=== PATIENT | female | born 1935 | race Caucasian/White ===

== ENCOUNTER 2022-07-07 10:55 | Emergency (ER) | payer MEDICARE, SELFPAY ==
[2022-07-07 10:56] VITALS: BP 110/77; PULSE 81; RESP 14; TEMP 36.5; O2SAT 96; BMI 24.5
--- NOTE | 2022-07-07 11:14 | EDS_ITS ---
HPI History of Present Illness Chief Complaint: Laceration Detail of Chief Complaint: Right scalp laceration after being hit with a Celso lift. Informant: EMS Onset/Context/Timing Onset: Today Mechanism/Context: Blunt Injury Current Severity: Mild Maximum Severity: Mild Associated Symptoms Associated Symptoms: Negative for Parasthesias, Weakness, Loss of function, Inability to ambulate, Loss of consciousness or Amnesia Narrative Narrative: 86-year-old female who does not speak has a history of dementia at an extended care facility they want to lift her today and a excellently hit her head with a Celso lift. Causing laceration to the right side of her scalp. Reportedly she is on the blood thinner Xarelto. Patient does not speak and cannot give me any history. Tetanus Immunization: Unknown Prior similar symptoms: No Recent Illness/Hospitalization: No [facility] Medical History Alzheimer disease Anxiety Aphasia HTN (hypertension) Home Medications donepezil 10 mg tablet (Aricept) 10 mg PO QHS 05/01/14 [History Last Taken Unknown] levothyroxine 125 mcg tablet (Synthroid) 50 mcg PO DAILY 05/01/14 [History Last Taken Unknown] divalproex 500 mg tablet,delayed release (Depakote) 500 mg PO BID 08/07/16 [H istory Last Taken Unknown] pravastatin 40 mg tablet 40 mg PO QHS 08/07/16 [History Last Taken Unknown] Venlafaxine Xr [Effexor Xr] 150 mg PO DAILY ##1 08/12/16 [Rx Last Taken Unknown] acetaminophen 325 mg tablet (Tylenol) 650 mg PO Q6H PRN PRN Mild Pain (scale 0- 3)/T>100.7 ##0 08/12/16 [Rx Last Taken Unknown] bisacodyl 5 mg tablet,delayed release 10 mg PO DAILY PRN PRN Constipation ##0 08/12/16 [Rx Last Taken Unknown] food supplemt, lactose-reduced 0.08 gram-1.5 kcal/mL oral liquid (Ensure Enlive) 120 ml PO 4X/DAY 08/12/16 [Rx Last Taken Unknown] hydrocodone-acetaminophen 5-325mg 5mg-325mg 1 tab PO Q4H PRN PRN Severe Pain (6- 10/10) ##30 08/12/16 [Rx Last Taken Unknown] lorazepam 0.5 mg tablet 0.25 mg PO BID ##14 08/12/16 [Rx Last Taken Unknown] polyethylene glycol 3350 17 gram oral powder packet 17 g PO DAILY 08/12/16 [Rx Last Taken Unknown] quetiapine 25 mg tablet 25 mg PO QHS 08/12/16 [Rx Last Taken Unknown] rivaroxaban 10 mg tablet (Xarelto) 10 mg PO DAILY@0600 ##30 08/12/16 [Rx Last Taken Unknown] Allergy/AdvReac Type Severity Reaction Status Date / Time Penicillins Allergy Unknown Verified 07/07/22 11:01 Social History Smoking Status: Former smoker ROS ROS ED ROS Narrative Unable to obtain due to the patient does not speak. She has dementia. Review of Systems ROS Unobtainable: due to mental status EXAM Physical Exam Narrative Exam Narrative: 86-year-old female lying in bed. Not speaking. But her eyes are open. Vital signs are stable afebrile. Pulse ox 96% on room air no hypoxia. H EENT exam pupils round reactive light. Extra motions are intact. No facial trauma. Her right posterior scalp there is a bunch of dried blood in her hair consistent with a laceration. Will need to clean that area off so I can see the laceration better explore it and decide what needs to be done. I suspect it will need to be closed. Posterior scalp nontender. C-spine trachea nontender. Lungs are clear. Heart regular rhythm rate about 80 no murmur. Chest wall and ribs nontender. Abdomen soft nontender. Hips and pelvis nontender. Her left hand is a contracture I suspect she has had a prior stroke. Her left leg is held in flexion but she has no hip tenderness. Right upper and lower extremity unremarkable. Neurologically she is awake. Her eyes are open. She tracks me about the room. She will not speak or answer questions. I suspect that is from her secondary underlying dementia. Const Vital Signs: 07/07/22 10:56 Temperature 97.7 F L Temperature Source Temporal Pulse Rate 81 Respiratory Rate 14 Blood Pressure 110/77 Blood Pressure Mean 88 Pulse Ox 96 Oxygen Delivery Method Room Air Positive well nourished and well developed; Negative for obese, cachectic, contractures or unkempt General Appearance ED: well developed and NAD; Negative for unkempt, cachectic or contractures Nutritional Appearance: Negative for cachectic or obese HEENT HEENT Narrative: Right posterior and lateral scalp laceration. trauma and tenderness; Negative for atraumatic Eyes PERRL and EOMs intact bilaterally General Eye ED: Yes other Neck No full ROM General: Negative for tenderness or other Chest Wall inspection of chest normal and palpation of chest normal Breast/Axilla Inspection: Negative for other Resp normal respiratory effort and clear to auscultation bilaterally Effort and Inspection: Negative for pain with movement Auscultation: Negative for rales, rhonchi or wheezes Cardio regular rhythm, S1 normal heart sound, S2 normal heart sound and no murmurs Jugular Venous Distention: Negative for other Palpation: Negative for palpable S3 Rate: regular rate Rhythm: Negative for abnormal rhythm GI normal to inspection, nondistended, normoactive bowel sounds, non-tender, non- distended and no masses Inspection: Negative for abdominal distention Auscultation: normoactive bowel sounds Palpation: soft; Negative for tender Back/Spine normal to inspection and no thoracic nor lumbar tenderness General Back: Negative for CVA tenderness Thoracic Spine / Upper Back: Negative for thoracic spinal tenderness Lumbar Spine / Lower Back: Negative for straight leg raise negative bilaterally Extremity normal to inspection; Negative for full ROM Extremity Narrative: Contracture left hand and left lower extremity. General Extremety ED: Negative for deformity or edema General Extremity: Negative for deformity or edema Neuro No oriented x3, No moves all extremities, No no focal motor deficits and No gait normal Neuro Narrative: Patient awake alert eyes open but will not speak. Does not follow commands. Sensorium / Orientation: alert and orientation impaired; Negative for oriented to person, oriented to place, oriented to time, lethargic or stuporous Motor Exam: Negative for strength 5/5 throughout Psych mental status grossly normal Appearance: Negative for unkempt Attitude: No agitated Mood & Affect: Negative for depressed, anxious or tearful Skin no rashes or lesions noted and No no wounds Skin Narrative: Right lateral posterior scalp laceration. Rashes: No rashes noted Trauma: Negative for abrasion Wounds: Negative for wounds noted PROC Procedures Lacerations Right lateral scalp laceration repair:: Length: 3.15 in Depth: Sub Q Shape: Linear Prep: Pilar-Yeimy Number of Sutures/Barbie: 6 Suture Information: Ethilon, Simple and 4-0 Comment: Right lateral scalp posterior area about a 3 to 4 inch laceration involves the skin and subcu tissue down to the bone of the skull. There is no step-off. Locally anesthetized with lidocaine. Cleaned with Shur-Clens. Irrigated with saline and explored. Closed using six 4-0 Ethilon sutures. Proper hemostasis wound closure is obtained. MDM MDM MDM Narrative Medical decision making narrative: 86-year-old from a residential on the blood thinner Xarelto had trauma to her head and will most likely laceration repaired. CAT scan being obtained. Repeat exam patient doing well. Tetanus will be updated. CAT scan showed meningioma but no acute bleed. Read by the radiologist reviewed by me. Wound to be cleaned and dressed. She will be discharged back to the extended care facility. Radiography Diagnostic Testing: Clinical Impression(s) from Imaging Studies Brain CT 07/07/22 11:14 IMPRESSION: Chronic involutional changes of the brain. Stable small meningioma overlying the left posterior parietal lobe. Electronically Signed: Jeramie Monson MD at 12:19 EST , Discharge Plan Triage Chief Complaint: Laceration ED Provider: Satish Hope Dx/Rx/DC Orders Clinical Impression: Laceration of scalp, Dementia, Head injury, Chronic anticoagulation Instructions: ED Head Injury (Adult), ED Laceration: All Closures Prescriptions: No Action donepezil [Aricept] 10 MG tablet 10 mg PO QHS levothyroxine [Synthroid] 125 MCG tablet 50 mcg PO DAILY Label Comments: pravastatin 40 MG tablet 40 mg PO QHS divalproex [Depakote] 500 MG Tablet.Dr 500 mg PO BID quetiapine 25 MG tablet 25 mg PO QHS 0RF acetaminophen [Tylenol] 325 MG tablet 650 mg PO Q6H PRN PRN (Reason: Mild Pain (scale 0-3)/T>100.7) Qty: 0 0RF polyethylene glycol 3350 17 GM Packet 17 g PO DAILY 0RF hydrocodone-acetaminophen 1 TABLET tablet 1 tab PO Q4H PRN PRN (Reason: Severe Pain (6-10/10)) Qty: 30 0RF lorazepam 0.5 MG tablet 0.25 mg PO BID Qty: 14 0RF bisacodyl 5 MG tablet 10 mg PO DAILY PRN PRN (Reason: Constipation ) Qty: 0 0RF food supplemt, lactose-reduced [Ensure Enlive] 120 ML Liquid 120 ml PO 4X/DAY 0RF Venlafaxine Xr [Effexor Xr] 75 MG capsule 150 mg PO DAILY Qty: 1 0RF rivaroxaban [Xarelto] 10 MG tablet 10 mg PO DAILY@0600 Qty: 30 0RF Rx Instructions: USE FOR 30 DAYS Primary Care Provider: Jose Angel Amador Chi Referrals: Jose Angel Amador Chi, MD [Primary Care Provider] - 10 Day for suture removal Activity Restrictions/Additional Instructions: Hold her blood thinning medication, Xarelto, for the next 3 days. Ice to the scalp to help stop the bleeding. Keep the area clean and covered. Gently clean daily and apply antibiotic ointment. Stitches out in 10 days which would be around Thursday the or the . Disposition Disposition: Home, Self Care
--- NOTE | 2022-07-07 11:14 | CT_ITS ---
STUDY: CT BRAIN WITHOUT CONTRAST REASON FOR EXAM: Female, 86 years old. Head trauma. Posterior laceration. RADIATION DOSAGE (If Supplied By Facility): CTDIvol = ( 44.99 ) mGy, DLP = ( 779.24 ) mGycm TECHNIQUE: Transaxial CT imaging of the brain was performed without administration of intravenous contrast material. Individualized dose optimization techniques were used for this CT. COMPARISON: Comparison is made with prior examination of 11/29/2008. FINDINGS: Normal soft tissue structures. There is a 13.6 mm x 12.1 mm rounded calcified extra-axial mass in the posterior left parietal lobe with a meningioma. There is moderate cerebral atrophy with widening of the extra-axial spaces and ventricular dilatation. There are areas of decreased attenuation within the white matter tracts of the supratentorial brain, consistent with microvascular disease changes. Normal basal ganglia and thalami. Normal brainstem. Normal cerebellum. There is no intracranial hemorrhage. There are no findings of an acute ischemic infarction. Atherosclerotic calcification of the vertebral arteries and cavernous portions of the internal carotid arteries bilaterally. Normal visualized paranasal sinuses. CT/Brain/Head without Contrast IMPRESSION: Chronic involutional changes of the brain. Stable small meningioma overlying the left posterior parietal lobe. Electronically Signed: Jeramie Monson MD at 12:19 EST ,
[2022-07-07] MEDS: Lidocaine/Epi/Tetracaine 50 ML 1 APPLIC TOPICAL (11:22)
--- NOTE | 2022-07-07 13:54 | ED.RN ---
ATTEMPTED MULTIPLE TIMES TO CALL REPORT TO THE AVENUE. WAS NEVER ABLE TO TALK TO A NURSE INFO WAS SENT BY EMS AND MULTIPLE PLACES IT STATED TO HOLD THE PTS JTALTO
== END 2022-07-07 13:55 | disposition home or self-care (01) ==
PROVIDERS: Emergency Provider Emergency Medicine; PCP Family Medicine; Visit Provider Emergency Medicine
DX: S01.01XA Laceration without foreign body of scalp, initial encounter (principal); F02.80 Dementia in other diseases classified elsewhere, unspecified severity, without behavioral disturbance, psychotic disturbance, mood disturbance, and anxiety; D32.9 Benign neoplasm of meninges, unspecified; I10 Essential (primary) hypertension; Z87.891 Personal history of nicotine dependence; Z79.01 Long term (current) use of anticoagulants; W31.89XA Contact with other specified machinery, initial encounter; Z23 Encounter for immunization
CPT/HCPCS: 12054; 70450; 99285

== ENCOUNTER 2023-07-09 18:12 | Emergency (ER) | payer MEDICARE, SELFPAY ==
[2023-07-09 18:14] VITALS: BP 151/129; PULSE 96; RESP 16; TEMP 36.4; O2SAT 95; BMI 23.1
--- NOTE | 2023-07-09 19:25 | EDS_ITS ---
HPI History of Present Illness Chief Complaint: Upper Extremity Injury Narrative Narrative: 87-year-old female presenting with a wound on the left thumb. Patient has chronic contracture of the left thumb. Physical therapy worked with her at the group home and tries to open and close the hand. They noted today there was a wound here. There is been no trauma that is been reported. Patient does not ambulate or get out of bed. No imaging has been done. [facility] Medical History Alzheimer disease Anxiety Aphasia HTN (hypertension) Home Medications donepezil 10 mg tablet (Aricept) 10 mg PO QHS 05/01/14 [History Last Taken Unknown] levothyroxine 125 mcg tablet (Synthroid) 50 mcg PO DAILY 05/01/14 [History Last Taken Unknown] divalproex 500 mg tablet,delayed release (Depakote) 500 mg PO BID 08/07/16 [History Last Taken Unknown] pravastatin 40 mg tablet 40 mg PO QHS 08/07/16 [History Last Taken Unknown] Venlafaxine Xr [Effexor Xr] 150 mg PO DAILY ##1 08/12/16 [Rx Last Taken Unknown] acetaminophen 325 mg tablet (Tylenol) 650 mg (2 x 325 mg) PO Q6H PRN PRN Mild Pain (scale 0-3)/T>100.7 ##0 08/12/16 [Rx Last Taken Unknown] bisacodyl 5 mg tablet,delayed release 10 mg (2 x 5 mg) PO DAILY PRN PRN Constipation ##0 08/12/16 [Rx Last Taken Unknown] food supplemt, lactose-reduced 0.08 gram-1.5 kcal/mL oral liquid (Ensure Enlive) 120 ml PO 4X/DAY 08/12/16 [Rx Last Taken Unknown] hydrocodone-acetaminophen 5-325mg 5mg-325mg 1 tab PO Q4H PRN PRN Severe Pain (6- 10/10) ##30 08/12/16 [Rx Last Taken Unknown] lorazepam 0.5 mg tablet 0.25 mg (1/2 x 0.5 mg) PO BID ##14 08/12/16 [Rx Last Taken Unknown] polyethylene glycol 3350 17 gram oral powder packet 17 g PO DAILY 08/12/16 [Rx Last Taken Unknown] quetiapine 25 mg tablet 25 mg PO QHS 08/12/16 [Rx Last Taken Unknown] rivaroxaban 10 mg tablet (Xarelto) 10 mg PO DAILY@0600 ##30 08/12/16 [Rx Last Taken Unknown] Allergy/AdvReac Type Severity Reaction Status Date / Time Penicillins Allergy Unknown Verified 07/09/23 18:13 Social History Smoking Status: Former smoker ROS ROS ED Review of Systems ROS Unobtainable: due to mental condition and due to mental status EXAM Physical Exam Const Vital Signs: 07/09/23 18:14 Temperature 97.6 F L Temperature Source Axillary Pulse Rate 96 Respiratory Rate 16 Blood Pressure 151/129 H Blood Pressure Mean 136 Pulse Ox 95 Oxygen Delivery Method Room Air Positive well nourished HEENT Reports moist mucous membranes Eyes PERRL and EOMs intact bilaterally Chest Wall inspection of chest normal Resp normal respiratory effort and clear to auscultation bilaterally Auscultation: Negative for rales, rhonchi or wheezes Cardio regular rate and regular rhythm Neuro oriented x3 and CN's II-XII intact bilaterally Sensorium / Orientation: alert MDM MDM MDM Narrative Medical decision making narrative: Patient presenting with ulceration on the left thumb which is difficult to visualize secondary to the patient's chronic contracture. I am unable to open the patient's hand all the way because she is fighting me presumably because this hurts and because she is a chronic contracture. There does appear to be a wound on the medial aspect of the left thumb and this is partially on the volar aspect as the patient has deformity of the hand secondary to chronic contracture. No active bleeding. Will obtain x-ray of the left hand. Wound will be cleaned and dressed. 3 views of the left hand on my interpretation show no acute fracture or subluxation. There is no evidence of osteomyelitis on x- ray. The physical exam finding most prominent is a pressure ulcer between the fingers that are contracted together. There is no acute laceration that needs sutured. This wound was cleaned thoroughly and dressed. Discussed treatment with her family member who is here. She will be discharged back to her facility. Impression: 1. Left hand pressure ulcer 2. History of contracture Discharge Plan Triage Chief Complaint: Upper Extremity Injury ED Provider: Papa,Sandor Dx/Rx/DC Orders Instructions: ED Pressure Injury Prescriptions: No Action donepezil [Aricept] 10 MG tablet 10 mg PO QHS levothyroxine [Synthroid] 125 MCG tablet 50 mcg PO DAILY Patient Comments: pravastatin 40 MG tablet 40 mg PO QHS divalproex [Depakote] 500 MG tablet,delayed release (DR/EC) 500 mg PO BID quetiapine 25 MG tablet 25 mg PO QHS 0RF acetaminophen [Tylenol] 325 MG tablet 650 mg PO Q6H PRN PRN (Reason: Mild Pain (scale 0-3)/T>100.7) Qty: 0 0RF polyethylene glycol 3350 17 GM powder in packet 17 g PO DAILY 0RF hydrocodone-acetaminophen 1 TABLET tablet 1 tab PO Q4H PRN PRN (Reason: Severe Pain (-04/28)) Qty: 30 0RF lorazepam 0.5 MG tablet 0.25 mg PO BID Qty: 14 0RF bisacodyl 5 MG tablet 10 mg PO DAILY PRN PRN (Reason: Constipation ) Qty: 0 0RF food supplemt, lactose-reduced [Ensure Enlive] 120 ML liquid 120 ml PO 4X/DAY 0RF Venlafaxine Xr [Effexor Xr] 75 MG capsule 150 mg PO DAILY Qty: 1 0RF rivaroxaban [Xarelto] 10 MG tablet 10 mg PO DAILY@0600 Qty: 30 0RF Rx Instructions: USE FOR 30 DAYS Primary Care Provider: Trever Mitatl Referrals: Trever Mittal MD [Primary Care Provider] - Disposition Disposition: Home, Self Care
--- NOTE | 2023-07-09 19:30 | RAD_ITS ---
EXAM: XR LEFT HAND COMPLETE, 3 OR MORE VIEWS CLINICAL INDICATION: ulcer TECHNIQUE: Frontal, lateral and oblique views of the left hand. COMPARISON: No relevant prior studies available. FINDINGS: BONES/JOINTS: Contracted appearance of the hand/fingers. Osteopenia. Extensive degenerative changes throughout the wrist and hand. Chondrocalcinosis. No acute fracture. No subluxation. No focal sclerotic or destructive changes observed. SOFT TISSUES: Mild soft tissue swelling is evident. No radiopaque foreign body. RAD/Hand Min 3 Views IMPRESSION: Mild soft tissue swelling is evident. Contracted and, degenerative changes, and osteopenia. Electronically Signed: Twin Merlos DO at 20:06 EST ,
[2023-07-09 23:00] VITALS: BP 137/92; RESP 15; O2SAT 92
== END 2023-07-10 01:06 | disposition home or self-care (01) ==
PROVIDERS: Emergency Provider Student in an Organized Health Care Education/Training Program; PCP Family Medicine; Visit Provider Student in an Organized Health Care Education/Training Program
DX: L89.899 Pressure ulcer of other site, unspecified stage (principal); Z87.891 Personal history of nicotine dependence
CPT/HCPCS: 73130; 99282